=== PATIENT | female | born 1950 | race Caucasian/White ===

== ENCOUNTER 2023-03-23 19:19 | Emergency (ER) | payer MEDICARE, OTHER, SELFPAY ==
[2023-03-23 19:20] VITALS: BP 141/82; PULSE 86; RESP 17; TEMP 39.1; O2SAT 94; BMI 21.8
[2023-03-23 19:26] VITALS: BP 141/82; PULSE 87; PULSE 92; RESP 18; TEMP 39.1; O2SAT 92; O2SAT 93
--- NOTE | 2023-03-23 19:29 | EKG12_ITS ---
Test Reason : DYSRHYTHMIA Blood Pressure : / mmHG Vent. Rate : 091 BPM Atrial Rate : 091 BPM P-R Int : 124 ms QRS Dur : 076 ms QT Int : 350 ms P-R-T Axes : 001 010 039 degrees QTc Int : 430 ms Normal sinus rhythm Minimal voltage criteria for LVH, may be normal variant ( R in aVL ) Borderline ECG Confirmed by JUAN CARLOS DAMON, NASRIN ([id number]), commissioning editor EMERSON BARBOZA ([id number]) on 03/24/2023 1:31:19 PM Referred By: Confirmed By:NASRIN RANGEL MD
--- NOTE | 2023-03-23 19:30 | EX.ED.DYSGE1 ---
HPI <BART Thayer - Last Filed: 03/23/23 21:22> History of Present Illness Chief Complaint: Fever Narrative Narrative: 72-year-old female with past medical history of triple negative breast cancer diagnosed in October 2022 presents with a fever. Last night she started to feel unwell and today spiked a fever and has a runny nose and cough. She took a dose of Tylenol PM around 3 PM trying to nap. She called her daughter stating she was not feeling well and they spoke with the on-call oncologist. She gets care with Dr. Herrera and started chemo recently. She started chemo a month ago and it every 2 weeks on Mondays with last treatment on 03/10. She has had a bilateral mastectomy. She also reports urinating almost every hour last night but has no burning or hematuria. No abdominal or flank pain. While the daughter was driving her to the emergency room she vomited once and briefly passed out leaning back against the seat. PFSH <BART Thayer - Last Filed: 03/23/23 21:22> PFS Medical History (Updated 03/23/23 @ 21:12 by BART Thayer) Basal cell carcinoma Breast lesion Forgetfulness GERD without esophagitis Invasive ductal carcinoma of breast Lesion of skin of nose Osteopenia Home Medications cholecalciferol (vitamin D3) 25 mcg (1,000 unit) capsule 25 mcg PO DAILY 11/28/22 [History Last Taken Unknown] multivitamin 1 tab PO DAILY 11/28/22 [History Last Taken Unknown] Allergy/AdvReac Type Severity Reaction Status Date / Time No Known Drug Allergies Allergy Other Verified 11/28/22 15:49 Family History (Updated 11/28/22 @ 15:54 by Lanie Summers) Mother Heart disease Surgical History S/P bunionectomy Social History (Updated 11/28/22 @ 15:54 by Lanie Summers) Smoking Status: Never smoker alcohol intake: never substance use type: does not use ROS <BART Thayer - Last Filed: 03/23/23 21:22> ROS ED ROS Narrative Constitutional: Positive for fever, chills, malaise. ENT: Positive for rhinorrhea. Negative for sore throat. CVS: Negative for palpitations, chest pain. Respiratory: Positive for cough. Negative for shortness of breath. GI: Positive for nausea, vomiting. Negative for abdominal pain, diarrhea, constipation, melena, hematochezia. : Positive for frequency. Negative for dysuria. Neuro: Negative for headache. Skin: Negative for rash. EXAM <BART Thayer - Last Filed: 03/23/23 21:22> Physical Exam Narrative Exam Narrative: CONST: Patient sitting in no acute distress. EYES: Normal inspection. ENT: Clear rhinorrhea, moist mucous membranes and normal posterior oropharynx, normal TMs bilaterally. NECK: Normal inspection. No meningismus. RESP: No respiratory distress, CTAB. CVS: Regular rate and rhythm, no murmur, no gallop. ABD: Soft and nontender, no guarding or rebound, nondistended. SKIN: Color normal, no rash, warm, dry, intact. EXTREMITIES: Normal appearance, no pedal edema. NEURO: Oriented x4. PSYCH: Normal affect. Const Vital Signs: 03/23/23 19:20 03/23/23 19:26 03/23/23 19:26 Temperature 102.4 F H 102.4 F H Temperature Source Oral Oral Pulse Rate 86 87 92 Respiratory Rate 17 18 18 Respiratory Effort Respiratory Pattern Blood Pressure 141/82 H 141/82 H 141/82 H Blood Pressure Mean 101 101 101 Pulse Ox 94 92 93 Oxygen Delivery Method Room Air Room Air Room Air 03/23/23 19:29 03/23/23 20:09 03/23/23 20:32 Temperature 102.1 F H Temperature Source Oral Pulse Rate 90 Respiratory Rate 19 H Respiratory Effort Normal Non-Labored Respiratory Pattern Normal Blood Pressure 149/85 H Blood Pressure Mean 106 Pulse Ox 94 97 Oxygen Delivery Method Room Air Room Air 03/23/23 21:10 Temperature 100.3 F H Temperature Source Oral Pulse Rate 92 Respiratory Rate 17 Respiratory Effort Respiratory Pattern Blood Pressure 140/82 H Blood Pressure Mean 101 Pulse Ox 93 Oxygen Delivery Method Room Air <Dr. Sai Coronado MD - Last Filed: 03/23/23 19:37> Physical Exam Const Vital Signs: 03/23/23 19:20 03/23/23 19:26 03/23/23 19:26 Temperature 102.4 F H 102.4 F H Temperature Source Oral Oral Pulse Rate 86 87 92 Respiratory Rate 17 18 18 Respiratory Effort Respiratory Pattern Blood Pressure 141/82 H 141/82 H 141/82 H Blood Pressure Mean 101 101 101 Pulse Ox 94 92 93 Oxygen Delivery Method Room Air Room Air Room Air 03/23/23 19:29 03/23/23 20:09 03/23/23 20:32 Temperature 102.1 F H Temperature Source Oral Pulse Rate 90 Respiratory Rate 19 H Respiratory Effort Normal Non-Labored Respiratory Pattern Normal Blood Pressure 149/85 H Blood Pressure Mean 106 Pulse Ox 94 97 Oxygen Delivery Method Room Air Room Air 03/23/23 21:10 Temperature 100.3 F H Temperature Source Oral Pulse Rate 92 Respiratory Rate 17 Respiratory Effort Respiratory Pattern Blood Pressure 140/82 H Blood Pressure Mean 101 Pulse Ox 93 Oxygen Delivery Method Room Air [facility] <BART Thayer - Last Filed: 03/23/23 21:22> [facility] Narrative Medical decision making narrative: History gathered from: Patient and daughter Patient has breast cancer on chemotherapy spiked a fever today having runny nose, cough, also 1 episode of vomiting and syncope on the way here. She appears well and nontoxic. She is febrile at 102.4 the rest of her vital signs are stable. Her medical exam is unremarkable. Sepsis work-up was initiated and she was given IV fluids and Tylenol and Toradol for fever. Labs show white count of 18.7, hemoglobin 11.1, and platelets of 248. There is are all better than previous according to the oncologist phone report. CMP shows sodium 134, normal renal function with BUN of 16, creatinine 0.87. Glucose is 123 with normal CO2 and anion gap. Viral swab is positive for COVID-19. CXR shows no acute process. Patient's fever has come down the rest of her vital signs remained stable and she does not require admission from the standpoint. She is not neutropenic. Her daughter states she can stay at her home tonight and she will monitor closely and they will call Dr. Herrera in the morning. I do think this is very reasonable. I discussed dosing of Tylenol at home and symptomatic care and return precautions. She was discharged in stable condition. Differential: Viral URI, pneumonia, neutropenic fever, UTI among others Consults: oncologist Dr. Shannon from [facility] called and provided history. She states most recent WBC level was 20.4, hemoglobin 9.9, platelet 312. I have personally performed a face to face assessment of the patient and have reviewed the TRAVIS Note. I performed a substantive portion of the visit including all aspects of the following. My lackey findings include: History is 72-year-old female diagnosed around November with triple negative breast cancer. Underwent bilateral mastectomies. Currently is undergoing chemotherapy with her last treatment around March 10. Has not felt well yesterday and today has developed a fever as high as 102. Called the oncologist on-call for the [facility] and sent in the emergency department for further evaluation. Exam is [vital signs stable she does have a fever currently of 1024. HEENT exam unremarkable. Neck nontender. No lymphadenopathy. Lungs clear to auscultation bilaterally. Heart regular rhythm rate about 90 no murmur. Chest wall nontender. Med port on the right. Nontender. No redness. Abdomen soft nontender. No peritoneal signs. Moving all 4 extremities. Nontender no edema. She is awake and alert. Answering questions following commands.] Medical Decision Making [72-year-old undergoing chemotherapy for breast cancer. Presents with a fever. She will be placed in sepsis protocol. Treated with Tylenol for fever. IV fluids. Zofran for nausea.] Other additions or changes: [None] Lab Data Attestation: I reviewed the patient's lab results. Labs: Laboratory Results - last 24 hr 03/23/23 03/23/23 19:50 20:43 WBC 18.7 H RBC 3.85 L Hgb 11.1 L Hct 32.9 L MCV 85.5 MCH 28.8 MCHC 33.7 RDW Std Deviation 44.6 H RDW Coeff of Radha 15.0 H Plt Count 248 MPV 8.6 Neut % (Auto) Not Reportable Absolute Neuts (auto) 15.5 H Absolute Lymphs (auto) 1.87 Total Counted 100 Neutrophils % (Manual) 72 H Band Neutrophils % 11 H Lymphocytes % (Manual) 10 L Monocytes % (Manual) 5 Metamyelocytes % 2 H Diff Path Review May foll Platelet Estimate ADEQUATE Hypochromasia RARE Anisocytosis 1+ PT 13.0 INR 1.0 APTT 44.5 H Sodium 134 L Potassium 3.6 Chloride 99 Carbon Dioxide 28.0 Anion Gap 7 BUN 16 Creatinine 0.87 Estim Creat Clear Calc 42.45 Est GFR (MDRD) Af Amer 82 Est GFR (MDRD) Non-Af 68 BUN/Creatinine Ratio 18.5 Glucose 123 H Lactic Acid 1.0 Calcium 9.0 Total Bilirubin 0.30 AST 17 ALT 21 Alkaline Phosphatase 150 H Total Protein 7.1 Albumin 3.5 Globulin 3.6 Albumin/Globulin Ratio 1.0 Urine Color Yellow Urine Clarity Sl. Cloudy Urine pH 8.0 Ur Specific Farson 1.015 Urine Protein 15 H Urine Glucose (UA) Normal Urine Ketones Negative Urine Occult Blood Negative Urine Nitrite Negative Urine Bilirubin Negative Urine Urobilinogen Normal Ur Leukocyte Esterase Negative Urine RBC 0-5 SEEN Urine WBC 0-5 SEEN Ur Squamous Epith Cells 0-5 SEEN Urine Bacteria RARE Urine Mucus 0 SEEN Radiography Diagnostic Testing: Clinical Impression(s) from Imaging Studies Chest X-Ray 03/23/23 20:22 IMPRESSION: No radiographic evidence of acute cardiopulmonary disease. Electronically Signed: Fredo Colón DO at 20:38 EDT Reading Location ID and State: [facility] / [place] Tel [phone], Service support , ED attending interpretation of 2- view chest x-ray shows normal heart size, no acute infiltrate. Right chest port. EKG Initial EKG: Attestation: I personally reviewed and interpreted this EKG as follows: Interpretation: Sinus Rhythm and No Acute Injury Pattern Comments: Normal sinus rhythm, 91 bpm, normal intervals, no ectopy, no STEMI criteria <Dr. Sai Coronado MD - Last Filed: 03/23/23 19:37> [facility] Narrative Medical decision making narrative: I have personally performed a face to face assessment of the patient and have reviewed the TRAVIS Note. I performed a substantive portion of the visit including all aspects of the following. My lackey findings include: History is 72-year-old female diagnosed around November with triple negative breast cancer. Underwent bilateral mastectomies. Currently is undergoing chemotherapy with her last treatment around March 10. Has not felt well yesterday and today has developed a fever as high as 102. Called the oncologist on-call for the [facility] and sent in the emergency department for further evaluation. Exam is [vital signs stable she does have a fever currently of 1024. HEENT exam unremarkable. Neck nontender. No lymphadenopathy. Lungs clear to auscultation bilaterally. Heart regular rhythm rate about 90 no murmur. Chest wall nontender. Med port on the right. Nontender. No redness. Abdomen soft nontender. No peritoneal signs. Moving all 4 extremities. Nontender no edema. She is awake and alert. Answering questions following commands.] Medical Decision Making [72-year-old undergoing chemotherapy for breast cancer. Presents with a fever. She will be placed in sepsis protocol. Treated with Tylenol for fever. IV fluids. Zofran for nausea.] Other additions or changes: [None] History & Record Review Discussion w/independent historian: Patient and Family Lab Data Labs: Laboratory Results - last 24 hr 03/23/23 03/23/23 19:50 20:43 WBC 18.7 H RBC 3.85 L Hgb 11.1 L Hct 32.9 L MCV 85.5 MCH 28.8 MCHC 33.7 RDW Std Deviation 44.6 H RDW Coeff of Radha 15.0 H Plt Count 248 MPV 8.6 Neut % (Auto) Not Reportable Absolute Neuts (auto) 15.5 H Absolute Lymphs (auto) 1.87 Total Counted 100 Neutrophils % (Manual) 72 H Band Neutrophils % 11 H Lymphocytes % (Manual) 10 L Monocytes % (Manual) 5 Metamyelocytes % 2 H Diff Path Review May foll Platelet Estimate ADEQUATE Hypochromasia RARE Anisocytosis 1+ PT 13.0 INR 1.0 APTT 44.5 H Sodium 134 L Potassium 3.6 Chloride 99 Carbon Dioxide 28.0 Anion Gap 7 BUN 16 Creatinine 0.87 Estim Creat Clear Calc 42.45 Est GFR (MDRD) Af Amer 82 Est GFR (MDRD) Non-Af 68 BUN/Creatinine Ratio 18.5 Glucose 123 H Lactic Acid 1.0 Calcium 9.0 Total Bilirubin 0.30 AST 17 ALT 21 Alkaline Phosphatase 150 H Total Protein 7.1 Albumin 3.5 Globulin 3.6 Albumin/Globulin Ratio 1.0 Urine Color Yellow Urine Clarity Sl. Cloudy Urine pH 8.0 Ur Specific Farson 1.015 Urine Protein 15 H Urine Glucose (UA) Normal Urine Ketones Negative Urine Occult Blood Negative Urine Nitrite Negative Urine Bilirubin Negative Urine Urobilinogen Normal Ur Leukocyte Esterase Negative Urine RBC 0-5 SEEN Urine WBC 0-5 SEEN Ur Squamous Epith Cells 0-5 SEEN Urine Bacteria RARE Urine Mucus 0 SEEN Radiography Diagnostic Testing: Clinical Impression(s) from Imaging Studies Chest X-Ray 03/23/23 20:22 IMPRESSION: No radiographic evidence of acute cardiopulmonary disease. Electronically Signed: Fredo Colón DO at 20:38 EDT Reading Location ID and State: [facility] / [place] Tel [phone], Service support , Discharge Plan Triage Chief Complaint: Fever ED Midlevel Provider: Neelima Agustin ED Provider: Sai Coronado Dx/Rx/DC Orders Clinical Impression: COVID-19, Syncope Instructions: Caring for Someone Who Has COVID-19 Prescriptions: No Action multivitamin Tablet 1 tab PO DAILY cholecalciferol (vitamin D3) 25 mcg (1,000 unit) capsule 25 mcg PO DAILY Primary Care Provider: Panfilo Rodriguez Referrals: Zhane Sepulveda DO [Med Staff - [employer]] - Activity Restrictions/Additional Instructions: Rest, drink plenty of fluids, take Tylenol 1000 mg every 6 hours to treat your fever. Call your oncologist tomorrow or return to ER if symptoms worsen. Disposition Disposition: Home, Self Care
[2023-03-23 20:08] LABS: Hematocrit 32.9 % (37-47); Hemoglobin 11.1 g/dL (12.0-15.0); Mean Corp Hgb Conc 33.7 g/dL (32-36); Mean Corpuscular Hgb 28.8 pg (27.0-32.0); Mean Corpuscular Volume 85.5 fL (81-99); Mean Platelet Vol. 8.6 fl (6.2-12.0); POSITIVE COUNT YES; POSITIVE MORPHOLOGY YES; Platelet Count 248 K/mm3 (150-450); RBC Distribution Width SD 44.6 fl (35.1-43.9); Red Blood Count 3.85 M/mm3 (4.2-5.4); White Blood Count 18.7 K/mm3 (4.4-11.0)
[2023-03-23 20:09] VITALS: O2SAT 94
[2023-03-23] MEDS: Acetaminophen 500 MG Tablet 1000 MG PO (20:10)
[2023-03-23] MEDS: 0.9% Normal Saline 1,000 ML 999 ML IV (20:10)
[2023-03-23] MEDS: Ondansetron 4 MG/2 ML Vial IV (20:10)
[2023-03-23 20:14] LABS: Differential Indicated MANUAL DIFF
[2023-03-23 20:19] LABS: Partial Thromboplast Time 44.5 Seconds (24.1-36.2)
--- NOTE | 2023-03-23 20:22 | RAD_ITS ---
INDICATION: cough EXAMINATION/TECHNIQUE: X-RAY - XR Chest 1 View COMPARISON: FINDINGS: LINES/DEVICES: There is a right venous port with tip at the proximal SVC level. LUNGS: No consolidation, edema or effusion. No pneumothorax. MEDIASTINUM AND CARDIOVASCULAR STRUCTURES: Cardiac silhouette not enlarged. Central airways and mediastinal contour are unremarkable. BONES AND SOFT TISSUES: Compression of T12. RAD/Chest 1 View (Portable) IMPRESSION: No radiographic evidence of acute cardiopulmonary disease. Electronically Signed: Fredo Colón DO at 20:38 EDT ,
[2023-03-23 20:27] LABS: AST(SGOT) 17 U/L (15-37); Alanine Aminotransfer ALT/SGPT 21 U/L (13-56); Albumin, Serum 3.5 g/dL (3.2-5.0); Alkaline Phosphatase 150 U/L (45-117); Anion Gap 7 (5-15); BUN 16 mg/dL (7-18); BUN/Creat Ratio 18.5 RATIO (10-20); Chloride 99 mmol/L (98-107); Creatinine, Serum 0.87 mg/dL (0.55-1.02); EST Glomerular Filtration Rate 68 mL/min (>60); Est Glom Filt Rate - Afr Amer 82 mL/min (>60); Estimated Creatinine Clearance 42.45 ml/min; Globulin 3.6 g/dL (2.2-4.2); Glucose 123 mg/dL (74-106); Potassium 3.6 mmol/L (3.5-5.1); Protein, Total 7.1 g/dL (6.4-8.2); Sodium Level 134 mmol/L (136-145)
[2023-03-23 20:32] VITALS: BP 149/85; PULSE 90; RESP 19; TEMP 38.9; O2SAT 97
[2023-03-23 20:43] LABS: Lymphocyte 10 % (19-41); Metamyelocyte 2 % (0-1); Monocyte 5 % (0-10); Neutrophil-Band 11 % (0-5); Neutrophil-Segmented 72 % (47-70); Total Cells Counted 100 (MANUAL DIFF)
[2023-03-23 20:44] LABS: Anisocytosis 1+
[2023-03-23 20:45] LABS: Hypochromasia RARE; Platelet Estimate ADEQUATE (ADEQ)
[2023-03-23 20:46] LABS: Absolute Lymphocyte Count 1.87 X10^3/uL (0.83-4.51); Absolute Neutrophil Count 15.5 X10^3/uL (2.0-7.7)
[2023-03-23 20:47] LABS: Mucous, Urine 0 SEEN /hpf (<or=2+)
[2023-03-23 20:55] LABS: Color, Urine Yellow (Yellow); Glucose, Dipstick Normal (Normal); Ketone-Dipstick Negative (Negative); Leukocyte Esterase-Dipstick Negative /ul (Negative); Nitrite-Dipstick Negative (Negative); Occult Blood-Urine Negative /ul (Negative); Protein-Dipstick 15 mg/dl (Negative); Specific Gravity, Urine 1.015 (1.002-1.030); Urine Bilirubin Dipstick Negative (Negative); Urine Clarity Sl. Cloudy (Clear); Urine Urobilinogen Normal (Normal)
[2023-03-23 21:05] LABS: Bacteria RARE /hpf (None Seen); Red Blood Cells-Urine 0-5 SEEN /hpf (0-5); Squamous Epithelial Cells - UA 0-5 SEEN /hpf (5-10); White Blood Cells 0-5 SEEN /hpf (0-5)
[2023-03-23 21:10] VITALS: BP 140/82; PULSE 92; RESP 17; TEMP 37.9; O2SAT 93
[2023-03-23] MEDS: Ketorolac 15 MG/ML Vial IV (21:24)
[2023-03-23 21:30] VITALS: BP 129/76; PULSE 88; PULSE 90; RESP 17; RESP 21; O2SAT 93; O2SAT 94
[2023-03-25 15:30] LABS: Pathologist Review Reviewed
== END 2023-03-23 21:49 | disposition home or self-care (01) ==
PROVIDERS: Physician Assistant; Emergency Provider Emergency Medicine; PCP Internal Medicine Infectious Disease; Visit Provider Emergency Medicine
DX: U07.1 COVID-19 (principal); R55 Syncope and collapse
CPT/HCPCS: 36591; 71045; 80053; 81001; 83605; 85025; 85610; 85730; 87040; 87086; 87428; 93005; 96361; 96374; 96375; 99285; J7030; A4216; J2405

== ENCOUNTER 2023-06-24 10:40 | Observation (INO) | payer MEDICARE, OTHER, SELFPAY ==
[2023-06-24] VITALS (7 sets, daily range): BP systolic 92–145; BP diastolic 74–96; PULSE 73–98; RESP 15–18; TEMP 36.1–37.1; O2SAT 96–99; BMI 22.6; BMI 21.9
--- NOTE | 2023-06-24 10:53 | CT_ITS ---
STUDY: CT BRAIN WITHOUT CONTRAST REASON FOR EXAM: Female, 72 years old. Dizziness RADIATION DOSAGE (If Supplied By Facility): CTDIvol = ( 47.06 ) mGy, DLP = ( 837.39 ) mGycm TECHNIQUE: Transaxial CT imaging of the brain was performed without administration of intravenous contrast material. Individualized dose optimization techniques were used for this CT. COMPARISON: No relevant priors. FINDINGS: Normal soft tissue structures. Normal calvarium. Normal size ventricles and extra-axial spaces for the patient''s age. There are areas of decreased attenuation within the white matter tracts of the supratentorial brain, consistent with microvascular disease changes. Normal basal ganglia and thalami. Normal brainstem. Normal cerebellum. There is no intracranial hemorrhage. There are no findings of an acute ischemic infarction. Normal visualized paranasal sinuses. CT/Brain/Head without Contrast IMPRESSION: Chronic involutional changes of the brain. Electronically Signed: Gino Lyon MD at 12:31 EST ,
--- NOTE | 2023-06-24 10:53 | EKG12_ITS ---
Test Reason : SYNCOPE Blood Pressure : / mmHG Vent. Rate : 067 BPM Atrial Rate : 067 BPM P-R Int : 144 ms QRS Dur : 076 ms QT Int : 406 ms P-R-T Axes : 040 007 029 degrees QTc Int : 429 ms Normal sinus rhythm Minimal voltage criteria for LVH, may be normal variant ( R in aVL ) Borderline ECG Confirmed by ABNER DAMON, SHANTELLE ([id number]), editor & co founder EMERSON BARBOZA ([id number]) on 06/30/2023 10:34:23 AM Referred By: STEPHAN Confirmed By:MANDIE LEVINE MD
--- NOTE | 2023-06-24 10:54 | EDS_ITS ---
HPI History of Present Illness Chief Complaint: Syncope Informant: patient Onset/Context/Timing Onset: Today Current Severity: Mild Maximum Severity: Moderate Narrative Narrative: 72-year-old female history of triple negative breast cancer for which she underwent a double mastectomy and is currently undergoing weekly chemotherapy and has been having dizziness which she states is room spinning. She has had nausea. No vomiting. No headache. No prior history of vertigo. Today at home she felt weak and had a syncopal episode sitting at the breakfast table. She had eaten her breakfast. No fall or injury. Denies any dysuria or melena. Prior similar symptoms: No Recent Illness/Hospitalization: No PFSH PFSH Medical History Basal cell carcinoma Breast lesion Forgetfulness GERD without esophagitis Invasive ductal carcinoma of breast Lesion of skin of nose Osteopenia Home Medications cholecalciferol (vitamin D3) 25 mcg (1,000 unit) capsule 25 mcg PO DAILY SUPPLEMENT 11/28/22 [History Last Taken 06/24/23] multivitamin 1 tab PO DAILY SUPPLEMENT 11/28/22 [History Last Taken 06/24/23] meclizine 25 mg tablet 25 mg PO Q6H PRN DIZZINESS 06/24/23 [History Last Taken Unknown] Allergy/AdvReac Type Severity Reaction Status Date / Time No Known Drug Allergies Allergy Other Verified 06/24/23 10:43 Family History Mother Heart disease Surgical History S/P bunionectomy Social History Smoking Status: Never smoker alcohol intake: never substance use type: does not use ROS ROS ED ROS Narrative Nausea. Dizziness. Generalized weakness. Review of Systems ROS Unobtainable: Denies due to encephalopathy Constitutional Constitutional ED: Denies chills or fever(s) Eyes Eyes: Denies blurry vision ENT ENT ED: Denies ear pain Cardiovascular Cardiovascular: Denies chest pain Respiratory/Chest Respiratory/Chest: Denies cough or dyspnea Gastrointestinal Gastrointestinal: Reports nausea; Denies abdominal pain, constipation, diarrhea, melena or vomiting Genitourinary Genitourinary ED: Denies dysuria or hematuria Musculoskeletal Musculoskeletal: Denies arthralgias Integumentary Denies abscess Neurologic Neurologic: Denies headache(s) Psychiatric Psychiatric: Denies anxiety or depression Endocrine Endocrinology: Denies cold intolerance Hematologic/Lymphatic Hematologic/Lymphatic: Reports none Allergic/Immunologic Allergic/Immunologic ED: Denies mouth swelling, tongue swelling or urticaria EXAM Physical Exam Narrative Exam Narrative: 72-year-old female. Vital signs are stable except for blood pressure is 92/76. She clinically does not look significantly dehydrated. Her normal blood pressure is 120 over 70s. Sitting upright in bed. Family at bedside. H EENT exam alopecia. TMs are normal bilaterally. Pupils round reactive Lesch motions are intact. No facial droop. No face or head trauma. Moist mucous membranes. Neck nontender. No lymphadenopathy. Lungs clear to auscultation bilaterally. Heart regular rhythm no murmur. Abdomen soft nontender. Moving all 4 extremities. Calves are nontender without edema or cords. 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 Dorsi plantarflexion intact. Neurologically she is awake alert with no focal motor deficits. Const Vital Signs: 06/24/23 10:41 06/24/23 13:03 06/24/23 14:34 Temperature 96.9 F L Temperature Source Temporal Pulse Rate 77 93 79 Respiratory Rate 18 Blood Pressure 92/76 143/86 H 145/90 H Blood Pressure Mean 81 105 108 Pulse Ox 99 Oxygen Delivery Method Room Air 06/24/23 15:00 Temperature Temperature Source Pulse Rate 82 Respiratory Rate 18 Blood Pressure 138/83 H Blood Pressure Mean 101 Pulse Ox Oxygen Delivery Method Positive well nourished and well developed; Negative for obese, cachectic, contractures or unkempt General Appearance ED: well developed and NAD; Negative for unkempt, cachectic, contractures, cyanotic, diaphoretic or pallor Nutritional Appearance: Negative for cachectic or obese HEENT Reports TM's clear and moist mucous membranes; Denies dry mucous membranes Negative for trauma or tenderness Tympanic Membrane ED: Yes TM's clear Mouth ED: No dry mucous membranes Mouth: No dry mucous membranes Eyes PERRL and EOMs intact bilaterally General Eye ED: Negative for pale conjunctiva, scleral icterus or other Neck no lymphadenopathy, supple and no JVD General: Negative for tenderness Lymph Lymphatic: Negative for other Chest Wall inspection of chest normal and palpation of chest normal Chest: Negative for other Resp normal respiratory effort and clear to auscultation bilaterally Effort and Inspection: Negative for retractions Auscultation: Negative for rales, rhonchi or wheezes Cardio regular rate, regular rhythm, S1 normal heart sound, S2 normal heart sound and no murmurs GI normal to inspection, nondistended, normoactive bowel sounds, non-tender, non- distended and no masses Inspection: Negative for abdominal distention Auscultation: normoactive bowel sounds Palpation: soft; Negative for tender or guarding Bladder / Kidney Exam: No other Back/Spine no CVA tenderness General Back: Negative for CVA tenderness Cervical Spine: Negative for cervical spine tenderness Thoracic Spine / Upper Back: Negative for thoracic spinal tenderness Lumbar Spine / Lower Back: Negative for lumbar spinal tenderness Extremity General Extremety ED: Negative for edema or tenderness General Extremity: Negative for edema Neuro oriented x3 and CN's II-XII intact bilaterally Sensorium / Orientation: alert; Negative for orientation impaired, lethargic or stuporous Sensory Exam: No sensory level loss detected Motor Exam: strength 5/5 throughout; Negative for strength abnormal Psych mental status grossly normal Appearance: Negative for unkempt Attitude: No agitated Mood & Affect: Negative for depressed, anxious or tearful Skin no rashes or lesions noted, no wounds and skin turgor normal General Skin Exam: elasticity normal; Negative for jaundice or pallor Lesions: No lesion noted Rashes: No rashes noted Trauma: Negative for abrasion Wounds: Negative for wounds noted MDM MDM MDM Narrative Medical decision making narrative: 72-year-old female history of breast CA with bilateral mastectomies. Undergoes chemo therapy weekly. She has had dizziness that she describes as vertigo with room spinning over the last several days. He had nausea without vomiting. Today she had a syncopal episode while sitting at the breakfast table. Her exam is benign. She is hypotensive she will be given a liter normal saline. Screening labs, EKG and CAT scan of her brain will be obtained. Repeat exam patient is doing well at 12:30 PM. She feels somewhat better. She was given a liter normal saline. Currently her blood pressure is 126/81. Her labs are baseline compared to prior labs and when I looked at from the [facility] that were on their iPhone. Her troponin is elevated at 96 we will do a 2-hour troponin level. This could be from a cardiac event or it could be from the chemotherapy possibly because its cardiotoxic. Repeat exam patient doing well at 2:40 PM. She ambulated well with nursing. I have the hospitalist on page. Patient will be admitted to the PCU unit. History & Record Review Discussion w/independent historian: Patient and Family Additional record(s) reviewed:: Prior inpatient record, Prior outpatient record, Prior ED visit and Prior labs Lab Data Attestation: I reviewed the patient's lab results. Lab results narrative: Patient is awake and a 5.5. H&H 10.8 and 33.7. Platelets 262. Electrolytes show a gap of 3 normal BUN and creatinine 16 and 0.7. Glucose 103. Troponin elevated 96. 2-hour troponin was 91. Chest x-ray shows no acute process. Labs: Laboratory Results - last 24 hr 06/24/23 06/24/23 11:00 12:50 WBC 5.5 RBC 3.50 L Hgb 10.8 L Hct 33.7 L MCV 96.3 MCH 30.9 MCHC 32.0 RDW Std Deviation 52.0 H RDW Coeff of Radha 14.8 H Plt Count 262 MPV 9.4 Immature Gran % (Auto) 0.500 Neut % (Auto) 84.5 H Lymph % (Auto) 7.8 L [place] % (Auto) 5.7 Eos % (Auto) 1.1 Baso % (Auto) 0.4 Absolute Neuts (auto) 4.6 Absolute Lymphs (auto) 0.43 L Nucleated RBC % 0 Differential Comment COMMENT Sodium 138 Potassium 3.7 Chloride 106 Carbon Dioxide 29.0 Anion Gap 3 L BUN 16 Creatinine 0.75 Estim Creat Clear Calc 38.10 Est GFR (MDRD) Af Amer 96 Est GFR (MDRD) Non-Af 80 BUN/Creatinine Ratio 21.2 H Glucose 103 Calcium 8.7 Troponin I High Sens 96 H 91 H Radiography Chest X-Ray - ED: 1 View, Read by ED Physician, Heart, Lungs, Mediastinum, Bony Structures, No Acute Disease and Chronic Changes Diagnostic Testing: Clinical Impression(s) from Imaging Studies Brain CT 06/24/23 10:53 IMPRESSION: Chronic involutional changes of the brain. Electronically Signed: Gino Lyon MD at 12:31 EST , Chest X-Ray 06/24/23 11:25 IMPRESSION: Stable examination. No acute abnormality is seen. Electronically Signed: Gino Lyon MD at 12:30 EST , Chest x-ray, portable, single view, interpreted by myself shows no acute abnormality. Right-sided Mediport. Elevated right hemidiaphragm. Normal cardiac silhouette. No infiltrates. No effusions. Rhythm Strip Rhythm Strip: Sinus Rhythm Rate: 67 Ectopy: None EKG Initial EKG: Attestation: I personally reviewed and interpreted this EKG as follows: Interpretation: Sinus Rhythm and No Acute Injury Pattern Comments: Normal sinus rhythm rate of 67 no acute signs of [place] nor ischemia nor significant abnormal rhythm. Compared to an EKG from March no significant changes. Prior EKG tracings: available for review Prior: Unchanged Discharge Plan Dx/Rx/DC Orders Clinical Impression: Transient hypotension, History of breast cancer, Syncope, Elevated troponin level Disposition Disposition: Acute Care Hospital [facility]
[2023-06-24] MEDS: 0.9% Normal Saline (1000mL) 1,000 ML 1000 ML IV (11:11)
[2023-06-24 11:18] LABS: Absolute Lymphocyte Count 0.43 X10^3/uL (0.83-4.51); Absolute Neutrophil Count 4.6 X10^3/uL (2.0-7.7); Basophil# 0.02 X10^3/uL; Basophil% 0.4 % (0-1); Eosinophil# 0.06 X10^3/uL; Eosinophils% 1.1 % (0-5); Hematocrit 33.7 % (37-47); Hemoglobin 10.8 g/dL (12.0-15.0); Lymphocyte # 0.43 X10^3/ul (0.83-4.51); Lymphocyte % 7.8 % (19-41); Mean Corpuscular Hgb 30.9 pg (27.0-32.0); Mean Corpuscular Volume 96.3 fL (81-99); Mean Platelet Vol. 9.4 fl (6.2-12.0); Monocyte# 0.31 X10^3/uL; Monocyte% 5.7 % (0-10); NRBC Flagged by Analyzer 0 % (0-5); Neutrophil # 4.63 X10^3/uL (2.7-7.7); Neutrophil % 84.5 % (47-70); POSITIVE DIFFERENTIAL YES; Platelet Count 262 K/mm3 (150-450); RBC Distribution Width CV 14.8 % (11.6-14.6); White Blood Count 5.5 K/mm3 (4.4-11.0)
[2023-06-24 11:19] LABS: Differential Indicated SCAN CRITERIA MET
--- NOTE | 2023-06-24 11:25 | RAD_ITS ---
STUDY: X-RAY CHEST REASON FOR EXAM: Female, 72 years old. Syncope TECHNIQUE: Single AP portable view of the chest. COMPARISON: Comparison is made with prior study March 23, 2023. FINDINGS: A right-sided portacatheter is seen with the tip at the junction of the superior vena cava and right atrium. Surgical clips are seen in the left axilla suggestive of prior partial left mastectomy. Stable elevation of the right hemidiaphragm. The lungs are clear. There is no demonstrated pleural abnormality. Normal size heart. Normal mediastinum and hoang. Normal visualized pulmonary arteries. There is atherosclerotic tortuosity of the aortic arch and descending thoracic aorta. Normal visualized thoracic spine. Normal visualized ribs, clavicles, and shoulders. There is no demonstrated abnormality of the visualized soft tissue structures of the upper abdomen. RAD/Chest 1 View (Portable) IMPRESSION: Stable examination. No acute abnormality is seen. Electronically Signed: Gino Lyon MD at 12:30 EST ,
[2023-06-24 11:33] LABS: Anion Gap 3 (5-15); BUN 16 mg/dL (7-18); BUN/Creat Ratio 21.2 RATIO (10-20); Calcium,Total 8.7 mg/dL (8.5-10.1); Chloride 106 mmol/L (98-107); Creatinine, Serum 0.75 mg/dL (0.55-1.02); EST Glomerular Filtration Rate 80 mL/min (>60); Est Glom Filt Rate - Afr Amer 96 mL/min (>60); Glucose 103 mg/dL (74-106); Potassium 3.7 mmol/L (3.5-5.1); Sodium Level 138 mmol/L (136-145); Troponin-I HS 96 pg/mL (3.0-54.0)
[2023-06-24 13:19] LABS: Troponin-I HS 91 pg/mL (3.0-54.0)
--- NOTE | 2023-06-24 15:46 | HP.PCM.HOS_ITS ---
HPI - General General Date of Admission: 06/24/23 HPI Narrative FORTUNATO BORRERO, is a 72 F who presents to the hospital with a syncopal episode. She does have a history of triple negative breast cancer and has received Adriamycin in the past, after her treatment she did have an echo which was unremarkable per report from the daughter. Yesterday she had significant episodes of vertigo and so was not eating or drinking very well and this morning she woke up and was in the kitchen and appeared to have a syncopal episode. No obvious traumatic injuries, CT of the brain was unremarkable. Of note in the ER she had a nonischemic EKG however her initial troponin was 96 with repeat being 91. [facility] Medical History Basal cell carcinoma Breast lesion Forgetfulness GERD without esophagitis Invasive ductal carcinoma of breast Lesion of skin of nose Osteopenia Home Medications cholecalciferol (vitamin D3) 25 mcg (1,000 unit) capsule 25 mcg PO DAILY SUPPLEMENT 11/28/22 [History Last Taken 06/24/23] multivitamin 1 tab PO DAILY SUPPLEMENT 11/28/22 [History Last Taken 06/24/23] meclizine 25 mg tablet 25 mg PO Q6H PRN DIZZINESS 06/24/23 [History Last Taken Unknown] Allergy/AdvReac Type Severity Reaction Status Date / Time No Known Drug Allergies Allergy Other Verified 06/24/23 10:43 Family History Mother Heart disease Surgical History S/P bunionectomy Social History Smoking Status: Never smoker alcohol intake: never substance use type: does not use ROS Constitutional Constitutional: Denies chills, fatigue, fever(s) or malaise Eyes Eyes: Denies blurry vision ENT HEENT: Denies headache(s) or nasal discharge Cardiovascular Cardiovascular: Denies chest pain, dyspnea on exertion or syncope Respiratory/Chest Respiratory/Chest: Denies cough, shortness of breath at rest or shortness of breath with exertion Gastrointestinal Gastrointestinal: Denies constipation, diarrhea, nausea or vomiting Genitourinary Genitourinary: Denies dysuria Neurologic Neurologic: Reports syncope; Denies focal weakness, numbness or tremor(s) Psychiatric Psychiatric: Denies anxiety or depression Vital Signs Vital Signs Vital Signs: 06/24/23 10:41 06/24/23 13:03 06/24/23 14:34 Temperature 96.9 F L Temperature Source Temporal Pulse Rate 77 93 79 Respiratory Rate 18 Blood Pressure 92/76 143/86 H 145/90 H Blood Pressure Mean 81 105 108 Pulse Ox 99 Oxygen Delivery Method Room Air 06/24/23 15:00 Temperature Temperature Source Pulse Rate 82 Respiratory Rate 18 Blood Pressure 138/83 H Blood Pressure Mean 101 Pulse Ox Oxygen Delivery Method Weight Weight: 107 lb 12.897 oz Body Mass Index (BMI) 22.6 Physical Exam Narrative General: Alert, Oriented x3, Cooperative, No apparent distress HEENT: Atraumatic, PERRLA, EOMI, Normocephalic Oral: Dry mucosa Neck: Supple, No JVD Lungs: Diminished, Normal air movement, No rhonchi, No wheeze, No rales Cardiovascular: Regular rate, Regular Rhythm, Normal S1, Normal S2, No murmurs Abdomen: Soft, Non Tender, Non-Distended, No Hepato-splenomegaly Extremities: No edema, Capillary Refill Less than 3 Seconds Skin: No rashes, No breakdown Musculoskeletal: No Tenderness to Palpation of Joints or Extremities Neurological: Motor Exam 5/5 strength throughout, Sensory exam intact to light touch and pain Psych/Mental Status: Normal Affect, Appropriate Results Lab / Micro Data 06/24/23 11:00 06/24/23 11:00 Labs: Laboratory Results - last 24 hr 06/24/23 11:00: WBC 5.5, RBC 3.50 L, Hgb 10.8 L, Hct 33.7 L, MCV 96.3, MCH 30.9, MCHC 32.0, RDW Std Deviation 52.0 H, RDW Coeff of Radha 14.8 H, Plt Count 262, MPV 9.4, Immature Gran % (Auto) 0.500, Neut % (Auto) 84.5 H, Lymph % (Auto) 7.8 L, [place] % (Auto) 5.7, Eos % (Auto) 1.1, Baso % (Auto) 0.4, Absolute Neuts (auto) 4.6, Absolute Lymphs (auto) 0.43 L, Nucleated RBC % 0, Differential Comment COMMENT, Sodium 138, Potassium 3.7, Chloride 106, Carbon Dioxide 29.0, Anion Gap 3 L, BUN 16, Creatinine 0.75, Estim Creat Clear Calc 38.10, Est GFR (MDRD) Af Amer 96, Est GFR (MDRD) Non-Af 80, BUN/Creatinine Ratio 21.2 H, Glucose 103, Calcium 8.7, Troponin I High Sens 96 H 06/24/23 12:50: Troponin I High Sens 91 H Rhythm Strip Rhythm Strip: Sinus Rhythm Rate: 67 Ectopy: None Radiology Impression Brain CT 06/24/23 10:53 IMPRESSION: Chronic involutional changes of the brain. Electronically Signed: Gino Lyon MD at 12:31 EST , Chest X-Ray 06/24/23 11:25 IMPRESSION: Stable examination. No acute abnormality is seen. Electronically Signed: Gino Lyon MD at 12:30 EST , Assessment & Plan Assessment/Plan (1) Syncope: (2) Elevated troponin level: PLAN: Plan 1. Syncope/elevated troponin ? Unclear if it is orthostatic ? Given her history of Adriamycin we will monitor on telemetry and obtain a re peat echo ? We will allow for liberal diet ? We will obtain orthostatic vital signs ? As she has received IV fluids in the ER ? She denies any significant chest pain during this episode with syncope this morning, she says that she does have a little bit of left-sided chest pain so we will obtain serial enzymes 2. Triple negative breast cancer ? Continuing with chemotherapy as an outpatient DVT: Ambulation Charges/Coding Visit Charges Inpatient E&M: 31178 Init Hosp L2
[2023-06-24] MEDS: 0.9% Normal Saline (1000mL) 1,000 ML 100 ML IV (17:55)
[2023-06-24 18:00] LABS: Troponin-I HS 108 pg/mL (3.0-54.0)
[2023-06-25] MEDS: 0.9% Normal Saline (1000mL) 1,000 ML 100 ML IV (03:31)
[2023-06-25 03:33] VITALS: BP 125/72; BP 137/90; BP 143/82; PULSE 83; PULSE 85; PULSE 88; RESP 15; TEMP 36.7; O2SAT 96
--- NOTE | 2023-06-25 05:55 | ECHOD_ITS ---
Reason For Study: SYNCOPE/NEAR SYNCOPE Procedure This was a 2D Doppler, Color Flow transthoracic echocardiogram. Exam performed portable in patient room. Left Ventricle Normal LV size. The estimated ejection fraction is 55 %. No evidence for diastolic dysfunction. No regional wall motion abnormalities noted. Right Ventricle Normal RV size. Normal systolic function. Atria The left atrium is mildly enlarged. Normal right atrium. No doppler evidence for ASD. Mitral Valve There is no mitral valve stenosis. Trivial mitral valve insufficiency. Tricuspid Valve There is no tricuspid stenosis. Unable to estimate RV systolic pressure due to inadequate jet, pulmonary artery pressure probably normal. Aortic Valve Trisinus/trileaflet aortic valve. There is no aortic stenosis. No aortic valve insufficiency. Pulmonic Valve There is no pulmonic valvular stenosis. No pulmonic valve insufficiency. Great Vessels Normal aortic root. Pericardium/Pleural No pericardial effusion. MMode/2D Measurements & Calculations LVIDd: 4.7 cm IVSd: 0.82 cm Ao root diam: 3.1 cm LVIDs: 3.6 cm LVPWd: 0.95 cm RVDd: 2.4 cm FS: 24.1 % LAV(MOD-bp): 52.5 ml LVAd ap4: 25.4 cm2 SV(MOD-sp4): 33.9 ml LAV(MOD-bp) Indexed: 37.9 ml/m2 LVLd ap4: 7.3 cm LAV(MOD-sp2): 49.0 ml EDV(MOD-sp4): 73.8 ml LAV(MOD-sp4): 57.4 ml EDV(sp4-el): 75.3 ml LVAs ap4: 16.9 cm2 LVLs ap4: 5.9 cm ESV(MOD-sp4): 39.9 ml ESV(sp4-el): 40.8 ml EF(MOD-sp4): 45.9 % EF(sp4-el): 45.8 % SV(sp4-el): 34.5 ml LA A4 area: 18.7 cm2 LA dimension(2D): 4.3 cm TAPSE: 1.9 cm Time Measurements MV dec time: 0.35 sec Doppler Measurements & Calculations MV E max jose: 40.7 cm/sec Lat Peak E' Jose: 6.6 cm/sec Med Peak E' Jose: 4.5 cm/sec MV A max jose: 95.7 cm/sec E/E' lat: 6.2 E/E' med: 9.1 MV E/A: 0.43 MV dec slope: 120.1 cm/sec2 Ao V2 max: 126.0 cm/sec LV V1 max: 84.8 cm/sec Ao max P.4 mmHg LV V1 max P.9 mmHg Ao V2 mean: 89.0 cm/sec LV V1 mean P.5 mmHg Ao mean P.5 mmHg LV V1 mean: 57.5 cm/sec Ao V2 VTI: 22.3 cm LV V1 VTI: 20.2 cm AV (velocity ratio): 0.91 PA V2 max: 93.0 cm/sec TR max jose: 191.8 cm/sec PA V2 mean: 67.8 cm/sec TR max P.7 mmHg ECHO/Echo Complete Interpretation Summary The estimated ejection fraction is 55 %. No evidence for diastolic dysfunction. The left atrium is mildly enlarged. Trivial mitral valve insufficiency. Ordering Physician: Mark Mc Referring Physician: Panfilo Rodriguez Performed By: Kaley De Leon RDCS, RVT
[2023-06-25 06:24] LABS: Absolute Lymphocyte Count 0.64 X10^3/uL (0.83-4.51); Absolute Neutrophil Count 2.1 X10^3/uL (2.0-7.7); Basophil# 0.01 X10^3/uL; Basophil% 0.3 % (0-1); Eosinophil# 0.08 X10^3/uL; Eosinophils% 2.6 % (0-5); Hematocrit 30.9 % (37-47); Lymphocyte # 0.64 X10^3/ul (0.83-4.51); Lymphocyte % 20.7 % (19-41); Mean Corp Hgb Conc 32.4 g/dL (32-36); Mean Corpuscular Hgb 31.3 pg (27.0-32.0); Mean Corpuscular Volume 96.6 fL (81-99); Mean Platelet Vol. 9.1 fl (6.2-12.0); Monocyte# 0.28 X10^3/uL; Monocyte% 9.1 % (0-10); NRBC Flagged by Analyzer 0 % (0-5); Neutrophil # 2.07 X10^3/uL (2.7-7.7); Platelet Count 238 K/mm3 (150-450); RBC Distribution Width CV 14.7 % (11.6-14.6); RBC Distribution Width SD 51.9 fl (35.1-43.9); White Blood Count 3.1 K/mm3 (4.4-11.0)
[2023-06-25 07:00] LABS: Anion Gap 4 (5-15); BUN 15 mg/dL (7-18); Calcium,Total 8.2 mg/dL (8.5-10.1); Chloride 110 mmol/L (98-107); Creatinine, Serum 0.65 mg/dL (0.55-1.02); EST Glomerular Filtration Rate 94 mL/min (>60); Est Glom Filt Rate - Afr Amer 114 mL/min (>60); Estimated Creatinine Clearance 37.17 ml/min; Glucose 95 mg/dL (74-106); Potassium 3.9 mmol/L (3.5-5.1); Sodium Level 139 mmol/L (136-145)
--- NOTE | 2023-06-25 08:10 | PCM.PN.HOSP ---
Reason for Visit Reason for Visit: Diagnoses Syncope and collapse (06/24/23) Other specified abnormal findings of blood chemistry (06/24/23) Subjective Subjective No further events. Denies any chest pain. Objective Data Objective Data Vital Signs: Vital Signs Temp Pulse Resp BP Pulse Ox O2 Del Method 36.7 C 83 15 125/72 H 96 Room Air 06/25/23 03:33 06/25/23 03:33 06/25/23 03:33 06/25/23 03:33 06/25/23 03:33 06/25/23 07:56 Oxygen Delivery Method Room Air Weight: 47.7 kg Body Mass Index (BMI) 21.9 Intake & Output: Intake and Output for Last 24 Hours 06/23/23 06/24/23 06/25/23 23:59 23:59 23:59 Intake Total 1240 / 1690 1560 / 1560 Balance 1240 / 1690 1560 / 1560 Lab / Micro Data 06/25/23 06:00 06/25/23 06:00 Labs: Laboratory Results - last 24 hr 06/24/23 11:00: WBC 5.5, RBC 3.50 L, Hgb 10.8 L, Hct 33.7 L, MCV 96.3, MCH 30.9, MCHC 32.0, RDW Std Deviation 52.0 H, RDW Coeff of Radha 14.8 H, Plt Count 262, MPV 9.4, Immature Gran % (Auto) 0.500, Neut % (Auto) 84.5 H, Lymph % (Auto) 7.8 L, [place] % (Auto) 5.7, Eos % (Auto) 1.1, Baso % (Auto) 0.4, Absolute Neuts (auto) 4.6, Absolute Lymphs (auto) 0.43 L, Nucleated RBC % 0, Differential Comment COMMENT, Sodium 138, Potassium 3.7, Chloride 106, Carbon Dioxide 29.0, Anion Gap 3 L, BUN 16, Creatinine 0.75, Estim Creat Clear Calc 38.10, Est GFR (MDRD) Af Amer 96, Est GFR (MDRD) Non-Af 80, BUN/Creatinine Ratio 21.2 H, Glucose 103, Calcium 8.7, Troponin I High Sens 96 H 06/24/23 12:50: Troponin I High Sens 91 H 06/24/23 17:27: Troponin I High Sens 108 H 06/25/23 06:00: WBC 3.1 L, RBC 3.20 L, Hgb 10.0 L, Hct 30.9 L, MCV 96.6, MCH 31.3, MCHC 32.4, RDW Std Deviation 51.9 H, RDW Coeff of Radha 14.7 H, Plt Count 238, MPV 9.1, Immature Gran % (Auto) 0.300, Neut % (Auto) 67.0, Lymph % (Auto) 20.7, [place] % (Auto) 9.1, Eos % (Auto) 2.6, Baso % (Auto) 0.3, Absolute Neuts (auto) 2.1, Absolute Lymphs (auto) 0.64 L, Nucleated RBC % 0, Sodium 139, Potassium 3.9, Chloride 110 H, Carbon Dioxide 25.0, Anion Gap 4 L, BUN 15, Creatinine 0.65, Estim Creat Clear Calc 37.17, Est GFR (MDRD) Af Amer 114, Est GFR (MDRD) Non-Af 94, BUN/Creatinine Ratio 23.0 H, Glucose 95, Calcium 8.2 L Radiography Diagnostic Testing: Radiology Impression Brain CT 06/24/23 10:53 IMPRESSION: Chronic involutional changes of the brain. Electronically Signed: Gino Lyon MD at 12:31 EST , Chest X-Ray 06/24/23 11:25 IMPRESSION: Stable examination. No acute abnormality is seen. Electronically Signed: Gino Lyon MD at 12:30 EST , Rhythm Strip Rhythm Strip: Sinus Rhythm Rate: 67 Ectopy: None Physical Exam Const alert and no apparent distress HEENT head/scalp atraumatic and moist oral mucous membranes HEENT Narrative: bilateral nystagmus. Resp normal respiratory effort, no retractions, no use of accessory muscles and clear to auscultation bilaterally Cardio regular rate, regular rhythm, S1 normal heart sound and S2 normal heart sound GI normal to inspection, nondistended, normoactive bowel sounds, soft to palpation, non-tender and non-distended Neuro Sensorium / Orientation: awake and alert Assessment & Plan Assessment/Plan (1) Syncope: PLAN: suspect vasovagal orthostats positive, though from sitting to standing. Will reevaluate. Does also have nystagmus, so cannot rule out a component of BPPV. Add PRN meclizine. (2) Elevated troponin level: PLAN: Unclear significance. Echo ordered. Reviewed records through [facility]: No prior troponins to review. Echo on 05/29/23: EF 56%. Echo 01/31 and 04/10/23 EF 55% Repeat echo pending. If that appears to be comparable to the previous echocardiograms and no additional work-up. However if it is worse and would recommend staying for stress test and possible cardiology evaluation. PLAN: Plan Triple negative breast cancer ? Continuing with chemotherapy as an outpatient DVT: Ambulation Charges/Coding Visit Charges Inpatient E&M: 49511 Subs Hosp L2
[2023-06-25 08:51] VITALS: BP 136/94; PULSE 82; RESP 16; TEMP 36.7; O2SAT 99
[2023-06-25 09:34] VITALS: BP 128/83; BP 130/73; BP 131/70; PULSE 81; PULSE 98
--- NOTE | 2023-06-25 15:09 | CHAPLAIN ---
Type of Pastoral Visit _x__ Initial Visit ___ Follow-up Visit ___ On-call Visit ___ General Patient Visit ___ Spiritual Assessment ___ Family Conference ___ Bereavement ___ Rapid Response ___ Code Blue ___ Other (describe below) Pastoral Care Referral From _x__ Patient ___ Family ___ Nurse ___ Physician ___ Governor Assembler Hydraulic ___ Power Cutting Machine Operator ___ Other (describe below) Sacrament/Intervention _x__ Active listening ___ Anointing ___ Taoism ___ Bereavement ___ Communion _x__ Henny exploration ___ _x__ Life review _x__ Prayer ___ Reconciliation ___ Sacrament of Sick _x__ Supportive presence ___ Wedding ___ Other (describe below) Pastoral Comments patient and daughter are in the room; pt is welcoming and presents with a gentle spirit; pt reports on her chemo treatments and more recent complications; pt also speaks of the of her from cancer; pt is open about her henny in God and how she relies on His help for her journey; listening, dialogue of henny journey, and prayer given; pt goal is to get answers from recent tests, have improvement in her situation, and to go home today if possible
--- NOTE | 2023-06-25 15:13 | CASEMGMT ---
Met with patient to complete MULLINS form. MULLINS form explained to patient who voiced understanding and signed form. Original form placed in pt?s chart and copy provided to patient.? Savannah Barrientos, Discharge Planning Asst
[2023-06-25 15:15] VITALS: BP 145/92; PULSE 91; RESP 18; TEMP 36.1; O2SAT 98
--- NOTE | 2023-06-25 15:40 | DCINST_ITS ---
Discharge Instructions Diet Discharge Diet: No restrictions Dressing / Incision Call your doctor if you observe: Fainting spells Follow Up Care Test Results: Test results from this visit will be discussed in further detail at your follow- up appointment, if applicable. Discharge Plan Admission Admit Date/Time: 06/24/23 15:44 Primary Reason for Your Visit: syncope Attending Provider: Guido Sánchez Primary Care Provider: Panfilo Rodriguez Consulting Providers: Mark Mc Instructions Additional Instructions / Restrictions: Patient presented with a syncopal episode. Your work-up thus far has been unremarkable with exception of some mildly elevated cardiac markers. I did review in your clinic clinic records that that there were no prior labs ordered so I do not know if this is actually a new or chronic elevation. Echocardiogram has been ordered. Prior echocardiograms that you have had through [facility]. To be unremarkable. If you have recurrent episodes notify your physician or return to the hospital. You may follow-up with your primary care doctor to see about getting an outpatient stress test. Follow-up with Dr. Herrera per routine. Discharge Orders/Prescriptions Prescriptions: Continued multivitamin Tablet 1 tab PO DAILY cholecalciferol (vitamin D3) 25 mcg (1,000 unit) capsule 25 mcg PO DAILY meclizine 25 mg tablet 25 mg PO Q6H PRN (Reason: DIZZINESS ) Referrals / Follow Up: Panfilo Rodriguez MD [Primary Care Provider] - Within 2 Weeks Disposition Disposition (needs filled in before D/C Order can be placed): Home, Self Care
--- NOTE | 2023-06-25 16:04 | PCM.DC.SUM ---
Providers Date of Admission: 06/24/23 Primary Care Physician: Dr. Panfilo Rodriguez MD Reason For Visit: SYNCOPE Diagnosis Discharge Diagnosis (1) Syncope: Status: Acute Code(s): R55 - Syncope and collapse Plan: suspect vasovagal orthostats positive, though from sitting to standing. Will reevaluate. Does also have nystagmus, so cannot rule out a component of BPPV. Add PRN meclizine. (2) Elevated troponin level: Status: Acute Code(s): R79.89 - Other specified abnormal findings of blood chemistry Plan: Unclear significance. Echo ordered. Reviewed records through [employer]: No prior troponins to review. Echo on 05/29/23: EF 56%. Echo 01/31 and 04/10/23 EF 55% Repeat echo pending. If that appears to be comparable to the previous echocardiograms and no additional work-up. However if it is worse and would recommend staying for stress test and possible cardiology evaluation. Plan Triple negative breast cancer ? Continuing with chemotherapy as an outpatient DVT: Ambulation Medications at Discharge Home Medications cholecalciferol (vitamin D3) 25 mcg (1,000 unit) capsule 25 mcg PO DAILY SUPPLEMENT 11/28/22 multivitamin 1 tab PO DAILY SUPPLEMENT 11/28/22 meclizine 25 mg tablet 25 mg PO Q6H PRN DIZZINESS 06/24/23 Hospital Course Procedures 2-D Echocardiogram Summary of Care Provided Minutes Spent on Discharge: 45 Hospital Course: Patient has single episode. She was orthostatic but also may have had a component of benign paroxysmal positional vertigo. Overall improved and has been up and doing well. Troponins were ordered from the emergency room though the patient was not having any chest pain and they were elevated. No baseline cardiac enzymes to compare to in the 08-18. Patient was never having any chest pain. Patient did have 2D echocardiogram that showed an EF of 55%. I did review the, through [facility], that the EF that she had in January, March and May for the same. ST elevation of the cardiac enzymes is unclear if the patient does have some subclinical cardiomyopathy from her chemotherapy or not. Did advise that she can certainly follow-up and have an outpatient stress test. But given that her EF is unremarkable and there is never any clear indication for cardiac enzymes to be evaluated, I do not feel that it needs to be done while she is in the hospital. Patient and her daughter were present when we discussed this and all are in agreement. Though they were advised if she does have recurrent chest pain to come back to the hospital. Weight / BMI Weight Weight: 47.7 kg Body Mass Index (BMI) 21.9 ABG / Lab / Microbiology Data 06/25/23 06:00 06/25/23 06:00 Laboratory: Laboratory Results - last 24 hr 06/24/23 17:27: Troponin I High Sens 108 H 06/25/23 06:00: WBC 3.1 L, RBC 3.20 L, Hgb 10.0 L, Hct 30.9 L, MCV 96.6, MCH 31.3, MCHC 32.4, RDW Std Deviation 51.9 H, RDW Coeff of Radha 14.7 H, Plt Count 238, MPV 9.1, Immature Gran % (Auto) 0.300, Neut % (Auto) 67.0, Lymph % (Auto) 20.7, Merrick % (Auto) 9.1, Eos % (Auto) 2.6, Baso % (Auto) 0.3, Absolute Neuts (auto) 2.1, Absolute Lymphs (auto) 0.64 L, Nucleated RBC % 0, Sodium 139, Potassium 3.9, Chloride 110 H, Carbon Dioxide 25.0, Anion Gap 4 L, BUN 15, Creatinine 0.65, Estim Creat Clear Calc 37.17, Est GFR (MDRD) Af Amer 114, Est GFR (MDRD) Non-Af 94, BUN/Creatinine Ratio 23.0 H, Glucose 95, Calcium 8.2 L Radiography Diagnostic Testing: Radiology Impression Echocardiogram 06/25/23 05:55 Interpretation Summary The estimated ejection fraction is 55 %. No evidence for diastolic dysfunction. The left atrium is mildly enlarged. Trivial mitral valve insufficiency. Ordering Physician: Mark Mc Referring Physician: Panfilo Rodriguez Performed By: Kaley De Leon, MITCHEL, RVT D/C Instructions Discharge Diet: No restrictions Call your doctor if you observe: Fainting spells Meaningful Use Info Meaningful Use Diagnoses (Choose all that apply): None applicable Discharge Plan Admission Admit Date/Time: 06/24/23 15:44 Primary Reason for Your Visit: syncope Attending Provider: Guido Sánchez Primary Care Provider: Panfilo Rodriguez Consulting Providers: Mark Mc Instructions Additional Instructions / Restrictions: Patient presented with a syncopal episode. Your work-up thus far has been unremarkable with exception of some mildly elevated cardiac markers. I did review in your clinic clinic records that that there were no prior labs ordered so I do not know if this is actually a new or chronic elevation. Echocardiogram has been ordered. Prior echocardiograms that you have had through [facility]. To be unremarkable. If you have recurrent episodes notify your physician or return to the hospital. You may follow-up with your primary care doctor to see about getting an outpatient stress test. Follow-up with Dr. Herrera per routine. Your troponins (cardiac enzymes) were slightly elevated at 96-91 and then at 108. Those are technically elevated but not severely elevated. Your echocardiogram looked okay and was similar to prior echocardiograms back in October, March and May. You have never had any cardiac enzymes that I see in the [facility] system so I cannot compare what may have happened in the past but your heart is overall functioning the same. Discharge Orders/Prescriptions Prescriptions: Continued multivitamin Tablet 1 tab PO DAILY cholecalciferol (vitamin D3) 25 mcg (1,000 unit) capsule 25 mcg PO DAILY meclizine 25 mg tablet 25 mg PO Q6H PRN (Reason: DIZZINESS ) Referrals / Follow Up: Panfilo Rodriguez MD [Primary Care Provider] - Within 2 Weeks Disposition Disposition (needs filled in before D/C Order can be placed): Home, Self Care Charges/Coding Visit Charges Inpatient E&M: 63209 Disch Hosp >30min
[2023-06-25] MEDS: 0.9 % NaCl (Sterile) Posiflush 10 mL IV (16:54)
== END 2023-06-25 17:16 | disposition home or self-care (01) ==
LOC: ED 14:53 → PCU 15:47
PROVIDERS: Admitting Provider Family Medicine; Emergency Provider Emergency Medicine; PCP Internal Medicine Infectious Disease
DX: R55 Syncope and collapse (principal); C50.919 Malignant neoplasm of unspecified site of unspecified female breast; R79.89 Other specified abnormal findings of blood chemistry; M85.80 Other specified disorders of bone density and structure, unspecified site; Z17.0 Estrogen receptor positive status [ER+]; Z90.13 Acquired absence of bilateral breasts and nipples; Z79.899 Other long term (current) drug therapy
CPT/HCPCS: 36415; 36591; 70450; 71045; 80048; 84484; 85025; 93005; 93306; 96361; 96374; 99221; 99284; J7030; A4216; G0378